=== PATIENT | female | born 1995 | race Caucasian/White ===

== ENCOUNTER → 2023-07-08 10:37 | Outpatient (BNVA) | payer MEDICAID, SELFPAY | PROVIDERS: Visit Provider Nurse Practitioner Women's Health | DX: Z34.93 Encounter for supervision of normal pregnancy, unspecified, third trimester (principal) | CPT/HCPCS: 76805; 80053; 80307; 81000; 82950; 84443; 85025; 86592; 86762; 86803; 86850; 86900; 87086; 87340; 87491; 87591; 87806 ==

== ENCOUNTER → 2023-07-13 08:50 | Outpatient (BNVA) | payer MEDICAID, SELFPAY | PROVIDERS: Visit Provider Obstetrics & Gynecology | DX: O09.93 Supervision of high risk pregnancy, unspecified, third trimester (principal); Z3A.00 Weeks of gestation of pregnancy not specified | CPT/HCPCS: 82951; 82952 ==

== ENCOUNTER → 2023-07-19 10:36 | Outpatient (BNVA) | payer SELFPAY | PROVIDERS: Visit Provider Obstetrics & Gynecology | DX: O09.93 Supervision of high risk pregnancy, unspecified, third trimester (principal); Z3A.32 32 weeks gestation of pregnancy | CPT/HCPCS: 81000 ==

== ENCOUNTER → 2023-07-30 16:19 | Outpatient (BNVA) | payer MEDICAID, SELFPAY | PROVIDERS: Visit Provider Obstetrics & Gynecology | DX: O09.93 Supervision of high risk pregnancy, unspecified, third trimester (principal); O09.30 Supervision of pregnancy with insufficient antenatal care, unspecified trimester; Z98.891 History of uterine scar from previous surgery; Z3A.36 36 weeks gestation of pregnancy | CPT/HCPCS: 81000; 87081 ==

== ENCOUNTER → 2023-08-02 08:13 | Outpatient (BNVA) | payer SELFPAY | PROVIDERS: Visit Provider Obstetrics & Gynecology | DX: O09.93 Supervision of high risk pregnancy, unspecified, third trimester (principal); Z3A.37 37 weeks gestation of pregnancy | CPT/HCPCS: 81000 ==

== ENCOUNTER → 2023-08-09 10:46 | Outpatient (BNVA) | payer MEDICAID, SELFPAY | PROVIDERS: Visit Provider Obstetrics & Gynecology | DX: O09.93 Supervision of high risk pregnancy, unspecified, third trimester (principal); O09.30 Supervision of pregnancy with insufficient antenatal care, unspecified trimester; Z98.891 History of uterine scar from previous surgery; Z3A.38 38 weeks gestation of pregnancy | CPT/HCPCS: 81000 ==

== ENCOUNTER 2023-08-17 05:48 | Inpatient (IN) | payer MEDICAID, SELFPAY ==
[2023-08-17] VITALS (32 sets, daily range): BP systolic 91–113; BP diastolic 51–82; PULSE 61–100; RESP 15–16; TEMP 36.3–36.7; O2SAT 96–98; BMI 38.1
[2023-08-17] MEDS: lactated ringers 1,000 ML 999 ML IV (06:13)
[2023-08-17 06:23] LABS: Basophils # 0.1 10^3/uL (0.0-0.1); Basophils % 0.3 %; Eosinophils # 0.2 10^3/uL (0.0-0.8); Eosinophils % 1.1 %; Hematocrit 35.6 % (36-47); Lymphocytes # 3.4 10^3/uL (0.8-4.8); Lymphocytes % 21.5 %; Mean Corpuscular HGB Conc 32.3 g/dL (30-55); Mean Corpuscular Hemoglobin 27.7 pg (27-33); Mean Corpuscular Volume 85.8 fl (85-98); Mean Platelet Volume 11.2 fL (7.4-10.4); Monocytes # 1.4 10^3/uL (0.2-0.9); Monocytes % 9.1 %; Neutrophils # 10.64 10^3/uL (1.8-7.7); Neutrophils % 67.4 %; Nucleated Red Blood Cells % 0 %; Platelet Count 310 10^3/cmm (157-399); Red Blood Count 4.15 10^6/uL (3.85-5.65)
[2023-08-17] MEDS: citric acid-sodium citrate 30 mL UDC PO (06:55)
[2023-08-17] MEDS: famotidine 20 mg/2 mL INJ IVP (06:56)
[2023-08-17] MEDS: ceFAZolin 2,000 MG in sodium chloride 0.9% (plus) 50 ML 100 MG IV (06:56)
--- NOTE | 2023-08-17 06:56 | ANES.PREANE2 ---
Pre-Anesthetic Assessment Height/Weight: Height 1.55 m Weight 91.626 kg Pulse Resp BP O2 Del Method 100 16 110/66 Room Air 08/17/23 05:58 08/17/23 05:54 08/17/23 05:58 08/17/23 05:57 Operation Date: 08/17/23 07:00 Proposed Procedures p Repeat section 55975,O34.219(Not Applicable) - Dante Hahn MD Familial anesthetic complications: None Was Beta Anatoly taken within 24 hours: N/A Was Clonidine taken within 24 hours: N/A Social Tobacco and No alcohol <0.5 pack(s) per day Exam alert, oriented x 3, clear to auscultation bilaterally and regular rate & rhythm Airway Submandibular: within normal limits Cervical ROM: within normal limits Mallampati: Class III Dentition: full History/ROS No significant history except as noted and No significant complaints Pulmonary None reported CV/HEM None reported None reported Hepatic None reported GI Gastroesophageal Reflux Disease Metabolic Morbid Obesity [facility] [place] None reported Neuropsych None reported Anesthetic Plan ASA status: 3 Anesthesia: Anesthesia Evaluation, General and Regional (specify below) (SAB) Risk of > 500 ml blood loss (7ml/kg in children): Yes, adequate IV access and fluids planned Medications/Allergies Home Medications Medication Instructions Recorded Confirmed Last Taken Type PNV 153-FA 400 mcg-om3 35 mg-dha 1 tab PO DAILY 07/30/23 08/17/23 2 Days Ago History 25 mg-epa 5 mg-fish oil chew ~08/15/23 tablet ( Gummies) Allergies Allergy/AdvReac Type Severity Reaction Status Date / Time red dye Allergy Unknown ALGY-Hives Verified 08/17/23 06:22 [facility] Anesthesia Family History Denies family history of Colon cancer Ovarian cancer Diabetes Heart disease Breast cancer Hypertension Uterine cancer Thyroid disease Stroke Female Reproductive History : 3 Data Anesthesia 08/17/23 06:05 Short CBC 08/17/23 Range/Units 06:05 WBC 15.80 H (3.29-11.43) 10^3/uL Hgb 11.50 (11.27-16.99) g/dL Hct 35.6 L (36-47) % MCV 85.8 (85-98) fl Plt Count 310 (157-399) 10^3/cmm Neut % (Auto) 67.4 % Neut # (Auto) 10.64 H (1.8-7.7) 10^3/uL Cardiac Studies: No Data to Display
--- NOTE | 2023-08-17 08:13 | PC.NURSE ---
Patient in OR2
--- NOTE | 2023-08-17 08:24 | PM.OP ---
Operative Report Date of procedure: August 17, 2023 Pre-op diagnosis: Term . Previous delivery Post-op diagnosis: Same as above Repeat delivery Procedure done: Repeat delivery Surgeon: Dante Hahn MD Estimated blood loss (mL): 500 IV fluids (mL): 1,200 Urine output (mL): 200 Procedure: After assuring informed consent, the patient was taken to the operating room and anesthesia was initiated. She was placed in the dorsal supine position with a left lateral tilt. The abdomen was prepped and draped in the usual sterile manner. A time-out procedure was performed. Preop antibiotics was administered. A Pfannenstiel skin incision was made with the scalpel and carried through to the underlying layer of fascia with the Bovie. The fascia was nicked in the midline and the incision extended laterally with the Sheridan scissors. The superior aspect of the fascial incision was then grasped with Alyssa clamps and elevated and the underlying rectus muscle dissected off bluntly and sharp with sheridan scissors dense adhesions. Attention was then turned to the inferior aspect of the incision which, in similar fashion, was grasped and tented up with Alyssa clamps and the rectus muscle dissected bluntly. The rectus muscles were then in the midline and the peritoneum identified, tented up and entered sharply with Metzenbaum scissors. The peritoneal incision was then extended superiorly and inferiorly with good visualization of the bladder. The Anibal O retractor was then inserted and the vesicouterine peritoneum identified, grasped with pickups and entered sharply with Metzenbaum scissors. This incision was then extended laterally and the bladder flap created digitally. The uterus incised in a low transverse fashion with the scalpel. The uterine incision was then extended with the bandage scissors. The was then delivered in the cephalic presentation atraumatically. The nose and the mouth were suctioned with bulb and the cord clamped and cut. The cord was normal and had three vessels. Amniotic fluid was clear. The placenta was then removed manually and the uterus exteriorized and cleared of all clots and debris. The uterine incision was repaired with 0 Vicryl in a running-locked fashion. A second layer of the same suture was used to obtain excellent hemostasis. The gutters were cleared of all clots. The uterus was then returned to the abdomen. The rectus muscles were approximated with 3-0 chromic gut. The ON-Q pain management system placed. The fascia was reapproximated with 0 Vicryl in an interrupted running fashion. The skin was closed with Insorb?s subcuticular absorbable chuck. The patient tolerated the procedure well. The sponge, lap and needle counts were correct times three.
[2023-08-17] MEDS: lactated ringers 1,000 ML 125 ML IV (08:32)
--- NOTE | 2023-08-17 09:05 | ANE.PACU2 ---
Inpatient post-anesthesia follow up: Airway intact: Yes Vital signs: Temperature 97.9 F Pulse Rate 65 Respiratory Rate 16 Blood Pressure 105/64 Pulse Oximetry 97 Oxygen Delivery Me thod Room Air Oxygen Flow Rate Fraction of Inspir ed Oxygen Hydration adequate: Yes Nausea and vomiting: No Pain level: 1 Mental status: Baseline
[2023-08-17] MEDS: dextrose 5%-lactated ringers 1,000 ML 125 ML IV (12:01)
[2023-08-17] MEDS: ketorolac 30 mg/mL INJ IVP ×2 (14:17→20:10)
[2023-08-17 20:37] LABS: Hematocrit 27.7 % (36-47); Mean Corpuscular HGB Conc 33.2 g/dL (30-55); Mean Corpuscular Hemoglobin 28.5 pg (27-33); Mean Corpuscular Volume 85.8 fl (85-98); Mean Platelet Volume 11.3 fL (7.4-10.4); Platelet Count 290 10^3/cmm (157-399); Red Blood Count 3.23 10^6/uL (3.85-5.65); Red Cell Distribution Width 13.8 % (12.1-15.1); White Blood Count 16.06 10^3/uL (3.29-11.43)
[2023-08-17] MEDS: alum-mag-hydroxide-sime 30 mL UDC PO (21:05)
[2023-08-18 05:29] VITALS: BP 90/54; PULSE 80; TEMP 36.2
[2023-08-18 05:30] VITALS: BP 90/54; PULSE 80
[2023-08-18] MEDS: ferrous sulfate EC 325 mg Tablet PO (10:06)
[2023-08-18] MEDS: prenatal vitamin Capsule 1 CAP PO (10:06)
[2023-08-18] MEDS: ibuprofen 800 mg tablet PO ×3 (10:07→22:16)
[2023-08-18] MEDS: docusate sodium 100 mg Capsule PO (10:08)
--- NOTE | 2023-08-18 10:17 | P.PN_ITS ---
Subjective 2 Subjective: Mrs. Betancourt 28-year-old female is status post repeat low-transverse delivery postoperative day 1. Refers pain well under control. Vitals/I&O/Wt Last Vital Signs Temp 97.2 F L 08/18/23 05:29 Pulse 80 08/18/23 05:30 Resp 16 08/17/23 08:59 BP 90/54 08/18/23 05:30 Pulse Ox 97 08/17/23 08:59 O2 Del Method Room Air 08/17/23 08:59 08/17/23 08/18/23 08/18/23 22:59 06:59 14:59 Intake Total 2000 / 4000 Output Total 300 / 1200 500 / 1700 Balance -300 / 800 1500 / 2300 Weight last 48 hrs Weight 91.626 kg Weight 91.626 kg Weight 91.626 kg Physical Exam 2 Narrative: GA; alert and oriented x 3 HEENT: normal Breasts: engorged Nipples - skin intact Lungs; clear to auscultation Heart: regular rhythm, no murmurs. Abd: Appropriately tender. BS+. Uterine fundus below umbilicus. No Fundal Tenderness. Minimal tenderness, incision clean and dry, no redness, pain or edema. Perineum: normal lochia. Extremities: no edema, no cyanosis, no tenderness. Urinary Catheter Management: Vaughn: Cath Placed During This Visit: yes, but has since been removed by the nurse Reason for Continuing Indwelling Catheter: Decision to DC Catheter Urinary Catheter Date of Insertion: 08/17/23 Urinary Catheter Time of Insertion: 07:15 Date Urinary Catheter Removed: 08/18/23 Time Urinary Catheter Discontinued: 00:25 Data 08/17/23 20:20 A&P Assessment and plan (1) delivery, delivered, current hospitalization: Mrs. Betancourt 28-year-old female is status post repeat low-transverse delivery postoperative day 1. She is afebrile and hemodynamically stable. Tolerating diet well. Plan Continue postoperative observation. Encourage ambulation Attestations 2 Medical Necessity Statement*: In my professional opinion per admitting diagnosis Coding Level of Care Code Acute Code for Chg Fwd Diagnoses delivery, delivered, current hospitalization O82
[2023-08-18 15:48] VITALS: BP 114/59; PULSE 83
[2023-08-18 22:29] VITALS: PULSE 80; O2SAT 98
[2023-08-18 22:31] VITALS: BP 116/65; PULSE 76
[2023-08-19 03:58] VITALS: BP 119/78; PULSE 75
--- NOTE | 2023-08-19 08:04 | PM.OBGYDC ---
Discharge Providers DENTAL LABORATORY SUPERVISOR Date of Admission: 08/17/23 05:48 Date of Discharge: 08/19/23 Attending Provider at Admission: Dante Hahn MD Attending Provider at Discharge: Dante Hahn MD Primary DENTAL LABORATORY SUPERVISOR: Dante Hahn MD Diagnoses at Discharge Discharge Diagnosis (1) delivery, delivered, current hospitalization: Status: Acute Reason for Visit Reason for Visit: c section Hospital Course Hospital Course Ms. Betancourt is a 28 year old admitted with a term and a history of previous delivery for schedule repeat delivery. The repeat delivery was performed without complication. Postoperative observation has been uneventful. She is afebrile and hemodynamically stable postoperative day 2. Tolerating diet well. Ambulating without difficulty. Pain well under control. She was counseled regarding pelvic rest for 6 weeks (no sex, no tampons, no vaginal douches). Return to the emergency room if any fever, increased bleeding or pain. Information Peripartum Data: Infant Delivery Method: Physical Exam Narrative: GA; alert and oriented x 3 HEENT: normal Breasts: engorged Nipples - skin intact Lungs; clear to auscultation Heart: regular rhythm, no murmurs. Abd: Appropriately tender. BS+. Uterine fundus below umbilicus. No Fundal Tenderness. Minimal tenderness, incision clean and dry, no redness, pain or edema. Perineum: normal lochia. Extremities: no edema, no cyanosis, no tenderness. Urinary Catheter Management: Vaughn: Cath Placed During This Visit: yes, but has since been removed by the nurse Reason for Continuing Indwelling Catheter: Decision to DC Catheter Urinary Catheter Date of Insertion: 08/17/23 Urinary Catheter Time of Insertion: 07:15 Date Urinary Catheter Removed: 08/18/23 Time Urinary Catheter Discontinued: 00:25 History History History 3 Term 1 0 Miscarriages/Ectopic 1 Living Children 1 Discharge Data Studies Completed and Pending Laboratory Results WBC 16.06 10^3/uL (3.29-11.43) H 08/17/23 20:20 RBC 3.23 10^6/uL (3.85-5.65) L 08/17/23 20:20 Hgb 9.20 g/dL (11.27-16.99) L 08/17/23 20:20 Hct 27.7 % (36-47) L 08/17/23 20:20 MCV 85.8 fl (85-98) 08/17/23 20:20 MCH 28.5 pg (27-33) 08/17/23 20:20 MCHC 33.2 g/dL (30-55) 08/17/23 20:20 RDW 13.8 % (12.1-15.1) 08/17/23 20:20 Plt Count 290 10^3/cmm (157-399) 08/17/23 20:20 MPV 11.3 fL (7.4-10.4) H 08/17/23 20:20 Neut % (Auto) 67.4 % 08/17/23 06:05 Lymph % (Auto) 21.5 % 08/17/23 06:05 [place] % (Auto) 9.1 % 08/17/23 06:05 Eos % (Auto) 1.1 % 08/17/23 06:05 Baso % (Auto) 0.3 % 08/17/23 06:05 Neut # (Auto) 10.64 10^3/uL (1.8-7.7) H 08/17/23 06:05 Lymph # (Auto) 3.4 10^3/uL (0.8-4.8) 08/17/23 06:05 [place] # (Auto) 1.4 10^3/uL (0.2-0.9) H 08/17/23 06:05 Eos # (Auto) 0.2 10^3/uL (0.0-0.8) 08/17/23 06:05 Baso # (Auto) 0.1 10^3/uL (0.0-0.1) 08/17/23 06:05 Nucleated RBC % (auto) 0 % 08/17/23 06:05 Nucleated RBCs # 0.0 /100WBC 08/17/23 06:05 Blood Type O Positive 08/17/23 06:05 Rho(D) Type Rh positive 08/17/23 06:05 Antibody Screen Negative 08/17/23 06:05 Vitals Last Vital Signs Temp 97.2 F L 08/18/23 05:29 Pulse 75 08/19/23 03:58 Resp 16 08/17/23 08:59 BP 119/78 08/19/23 03:58 Pulse Ox 98 12/27/23 22:29 O2 Del Method Room Air 08/17/23 08:59 Results Labs OB ([facility]): Blood Type O Positive 08/17/23 Antibody Screen Negative 08/17/23 Hct 27.7 % (36-47) L 08/17/23 Hgb 9.20 g/dL (11.27-16.99) L 08/17/23 Rho(D) Type Rh positive 08/17/23 Plt Count 290 10^3/cmm (157-399) 08/17/23 Hep Bs Antigen Non-reactive (Nonreactive) 07/08/23 Hepatitis C Antibody Non-reactive (Nonreactive) 07/08/23 Rubella IgG Antibody 120.6 IU/mL (0.0-10.0) H 07/08/23 RPR Nonreactive (Nonreactive) 07/08/23 HIV 1&2 Ab & HIV 1 Ag Non-reactive (Non-Reactiv) 07/08/23 TSH 2.86 uIU/mL (0.27-4.20) 07/08/23 C.trachomatis RNA (TMA) Not detected (NOT DETECTED) 07/08/23 N.gonorrhoeae RNA (TMA) Not detected (NOT DETECTED) 07/08/23 Chlamydia/GC Comment See note 07/08/23 Gest Glucose Tolerance mg/dL 07/13/23 Urine Opiates Screen Negative ng/mL (Negative) 07/08/23 Ur Barbiturates Screen Negative ng/mL (Negative) 07/08/23 Ur Phencyclidine Scrn Negative ng/mL (Negative) 07/08/23 Ur Amphetamines Screen Negative ng/mL (Negative) 07/08/23 U Benzodiazepines Scrn Negative ng/mL (Negative) 07/08/23 Urine Cocaine Screen Negative ng/mL (Negative) 07/08/23 U Marijuana (THC) Screen Negative ng/mL (Negative) 07/08/23 Micro Urine Specimen 07/08/23 Discharge Plan Discharge Patient Disposition: Home Condition: Stable Prescriptions: New hydrocodone-acetaminophen 5-325 mg tablet 1 tab PO Q4H PRN (Reason: pain) Qty: 20 0RF ferrous sulfate [Iron (ferrous sulfate)] 325 mg (65 mg iron) tablet 325 mg PO BID Qty: 30 0RF ibuprofen 800 mg tablet 800 mg PO TID PRN (Reason: pain) Qty: 60 0RF acetaminophen 325 mg capsule 325 mg PO Q4H PRN (Reason: fever or pain) Qty: 60 0RF docusate sodium [Colace] 100 mg capsule 100 mg PO BID Qty: 30 0RF Continued Gummies 400 mcg-35 mg- 25 mg-5 mg tablet,chewable 1 tab PO DAILY Discharge Orders: Discharge Order (Routine); Ordered 08/19/23 Ordered By: Dante Hahn Referrals: Dante Hahn MD [Physician] - 2 weeks Discharge Diet: Usual diet Discharge Activity: Limit activity as instructed Patient Instructions: Choosing Between Vaginal After () or Repeat... (GEN), Caring for Your Baby (GEN), TTN (Transient Tachypnea of [place]) (IP), Your 's Appearance (GEN), (GEN), Opioid Safety Activity Restrictions/Additional Instructions: 1. Please call [facility] on next working day to make your post-operative appointment in 2 weeks. 2. Please stay home until you come back to the clinic on first post-hospatilization check up. 3. Please follow instructions on your medications CAREFULLY. 4. If you have abdominal incision, do not cover it unless dressing is necessary because of drainage. OK to shower, but avoid bath. Leave steri-strips until they fall off. If they are still on one week after surgery, you may remove them. 5. If you had vaginal surgery or vaginal repair, Dr. Hahn may instruct you to take SITZ bath. 6. Yellow, blood tinged odorous vaginal discharge is usually normal after hysterectomy or vaginal surgeries. 7. No SEXUAL INTERCOURSE, tampons, or douches until you are completely released from the post-operative care. 8. Avoid constipation by eating right and maybe using some Metamucil or Milk of Magnesia. 9. All prescription refills are given during the working hours. Please do no wait till it runs out. Call the clinic at [phone] before your medication runs out. The clinic will get in touch with your doctor to prescribe medications if necessary. 10. Please remain within 40 mile radius from our hospital because emergencies do happen now and then during the post-operative period. 11. If you have stairs at home, take one step at a time slowly and minimize the number of trips. It helps to stay in one floor for the next few days. No lifting except what you can lift by one hand until you are released from the post-operative care. 12. Driving is discouraged until you are well healed. It may be 3-4 weeks before you feel strong enough to drive. You should be able to turn and look through the rear window without pain and you should be able to push the brake pedal very hard without pain before you drive. No fast rules, but SAFETY should be your primary concern. DO NOT drive if you are on sedating medications such as narcotics. 13. Call the clinic (during working hours) to make urgent appointment or go to the Emergency room, if any of the following occurs: i. Vaginal bleeding becomes heavy, more than a period. ii. Incision becomes red and sore, or drains pus. iii. Your TEMPERATURE is over 100.4F or you have chill. iv. IV site becomes red and swollen (a little ``knot?? is usually OK) v. Persistent nausea and vomiting vi. Persistent constipation or diarrhea vii. Rash or allergic reaction to medications. Discharge Attestations DENTAL LABORATORY SUPERVISOR Time Spent in Discharge Care*: greater than 30 min Coding Level of Care Code Acute Code for Chg Fwd Diagnoses delivery, delivered, current hospitalization O82
[2023-08-19] MEDS: ferrous sulfate EC 325 mg Tablet PO (09:16)
[2023-08-19] MEDS: prenatal vitamin Capsule 1 CAP PO (09:16)
[2023-08-19] MEDS: docusate sodium 100 mg Capsule PO (09:17)
[2023-08-19] MEDS: ibuprofen 800 mg tablet PO ×2 (09:17→15:22)
[2023-08-19 09:18] VITALS: BP 108/76; PULSE 79; RESP 16; TEMP 36.5
[2023-08-19 15:23] VITALS: BP 114/72; PULSE 92; RESP 15; TEMP 36.6
[2023-08-19 15:32] VITALS: BP 114/72; PULSE 92; RESP 15; TEMP 36.6
== END 2023-08-19 15:37 | disposition home or self-care (01) | DRG 788 ==
PROVIDERS: Admitting Provider Obstetrics & Gynecology; Visit Provider Obstetrics & Gynecology
PROC: (CPT 59514; principal; 2023-08-17 07:00)
DX: O34.211 Maternal care for low transverse scar from previous cesarean delivery (principal); N85.8 Other specified noninflammatory disorders of uterus; Z3A.39 39 weeks gestation of pregnancy; Z37.0 Single live birth
CPT/HCPCS: 36415; 51702; 59025; 59409; 85025; 85027; 86850; 86900; 96376; 98960; 99211; J0690; J1100; J1885; J2274; J2371; J2405; J2704; J3010; J3490; J7120; J7121

== ENCOUNTER 2023-10-03 21:27 | Emergency (ER) | payer MEDICAID, SELFPAY ==
[2023-10-03 21:34] VITALS: BP 127/97; PULSE 73; RESP 16; TEMP 36.7; O2SAT 99; BMI 32.1
[2023-10-03 21:51] VITALS: BP 127/97; PULSE 72; RESP 16; O2SAT 99
[2023-10-03 21:57] LABS: Basophils # 0.1 10^3/uL (0.0-0.1); Basophils % 0.7 %; Eosinophils # 0.2 10^3/uL (0.0-0.8); Eosinophils % 1.7 %; Lymphocytes # 4.2 10^3/uL (0.8-4.8); Lymphocytes % 37.2 %; Mean Corpuscular HGB Conc 31.4 g/dL (30-55); Mean Corpuscular Hemoglobin 26.8 pg (27-33); Mean Corpuscular Volume 85.2 fl (85-98); Mean Platelet Volume 9.5 fL (7.4-10.4); Monocytes # 0.8 10^3/uL (0.2-0.9); Monocytes % 6.8 %; Neutrophils # 5.99 10^3/uL (1.8-7.7); Neutrophils % 53.2 %; Nucleated Red Blood Cells % 0 %; Platelet Count 391 10^3/cmm (157-399); Red Blood Count 4.93 10^6/uL (3.85-5.65); Red Cell Distribution Width 15.9 % (12.1-15.1); White Blood Count 11.24 10^3/uL (3.29-11.43)
[2023-10-03] MEDS: sodium chloride 0.9% 1,000 ML 999 ML IV (22:07)
[2023-10-03] MEDS: lidocaine 2% viscous 15 ML, aluminum-mag hydrox-simethicon 30 ML, sucralfate oral liq 1 GM PO (22:09)
[2023-10-03 22:19] LABS: HCG, Serum Qual Negative (Negative)
[2023-10-03 22:37] LABS: Alanine Aminotransferase 31 U/L (0-33); Albumin Level 3.9 g/dL (3.5-5.2); Alkaline Phosphatase 143 U/L (35-105); Anion Gap 14.4 (5-19); Aspartate Amino Transferase 36 U/L (0-32); Blood Urea Nitrogen 10 mg/dL (6-20); Calcium 8.3 mg/dL (8.5-10.5); Carbon Dioxide 22 mmol/L (22-29); Chloride 107 mmol/L (98-107); Globulin 2.4 g/dL (1.3-4.6); Glomerular Filtration Rate 101.1 mL/min (90-130); Glucose 91 mg/dL (65-115); Lipase 26 U/L (13-60); Osmolality Calculated 289 mOsm/kg (285-295); Potassium 3.4 mmol/L (3.5-5.1); Sodium 140 mmol/L (136-145); Total Bilirubin 0.4 mg/dL (0.15-1.2); Total Protein 6.3 g/dL (6.6-8.7)
[2023-10-03 22:40] LABS: Add Urine Microscopic? NO; Charge for UA Resulting for Rev
[2023-10-03 22:43] LABS: Bilirubin Urine Neg (Negative); Blood Urine Neg (Negative); Glucose Urine UA Norm (Normal); Ketones Urine 1+ (Negative); Nitrate Urine Negative (Negative); Protein Urine Neg (Negative); Specific Gravity, Urine 1.015 (1.005-1.030); Urine Appearance Clear (CLEAR); Urine Color Yellow (Yellow); pH Urine 6.5 (5-7)
[2023-10-03 22:44] LABS: Leukocyte Esterase Urine Negative (Negative); Urobilinogen Urine 1 mg/dL (Negative)
[2023-10-03] MEDS: ondansetron 2 mg/ML SDV 2 mL 4 MG IVP (23:08)
[2023-10-03 23:11] VITALS: RESP 20; O2SAT 98
[2023-10-03] MEDS: morphine 4 mg/mL SDV 1 mL IVP (23:11)
[2023-10-03 23:12] VITALS: BP 133/95; PULSE 73; RESP 20; O2SAT 98
[2023-10-04] MEDS: ciprofloxacin 500 mg Tablet PO (01:05)
[2023-10-04] MEDS: metroNIDAZOLE 500 MG Tablet PO (01:05)
--- NOTE | 2023-10-04 05:34 | ED_ITS ---
HPI - Abdominal Pain 2 General: Chief Complaint: Abdominal Pain Stated Complaint: ABD Pain Time Seen by Provider: 10/03/23 21:33 History of Present Illness: 28-year-old female with epigastric and r ight upper quadrant pain. Pain started today. She has had prior episodes, several actually. She has vomited prior, but not today. No fevers. She does not necessarily associate pain with meals. History of C-sections, otherwise no belly surgeries. Associated Symptoms: Reports diarrhea, nausea and vomiting; Denies fever(s) and hematochezia Review of Systems 2 Const: Denies: fever(s) Eyes: Denies: change in vision Card: Denies: chest pain or palpitations Resp: Denies: dyspnea, productive cough, non-productive cough or wheezing GI: Reports: abdominal pain, nausea, vomiting and diarrhea; Denies: hematochezia : Denies: difficulty voiding Skin/Breast: Denies: rash Neuro: Denies: headache(s), weakness in extremities, dizziness or confusion PFSH ED 2 PFSH: Family History Denies family history of Colon cancer Ovarian cancer Diabetes Heart disease Breast cancer Hypertension Uterine cancer Thyroid disease Stroke Physical Exam 2 Const: COMMON NORMALS: no acute distress GENERAL APPEARANCE: cooperative; not ill appearing and not frail appearing HENMT: COMMON NORMALS: normocephalic, atraumatic and Normal external nose present HEAD & SCALP: normocephalic and atraumatic FACE & SINUS: normal facial exam and face symmetric NOSE: Normal external nose present Eye: COMMON NORMALS: Equal, round and reactive pupils present and EOMs intact bilaterally PUPIL: Yes Equal, round and reactive pupils present Neck/C-Spine: GENERAL: Yes trachea midline Chest: CHEST: Yes Symmetrical chest wall rise Resp: COMMON NORMALS: normal respiratory effort, No retractions, No use of accessory muscles and clear to auscultation bilaterally AUSCULTATION: clear to auscultation bilaterally Cardio: COMMON NORMALS: regular rate and regular rhythm RATE: regular rate RHYTHM: regular rhythm GI: COMMON NORMALS: Normal to inspection, nondistended, normoactive bowel sounds present and Soft to palpation PALPATION: Yes Soft to palpation, Yes Tenderness to palpation present (GI) and Yes Guarding due to palpation present (GI) Extremity: COMMON NORMALS: no pedal edema Neuro: ALFREDO COMA SCALE: document GCS findings Alfredo coma scale eye opening: Spontaneous Hudson coma scale verbal response: Orientated Alfredo coma scale motor response: Obey commands Hudson coma scale total score: 15 S ENSORY EXAM: Yes extremities (intact) Psych: COMMON NORMALS: speech normal SPEECH: Yes normal speech Skin: COMMON NORMALS: no rashes or lesions noted GENERAL SKIN EXAM: no rashes or lesions noted Course 2 Vital Signs: Vital signs: Vital Signs Temperature 98.0 F 10/03/23 21:34 Pulse Rate 73 10/03/23 23:12 Respiratory Rate 20 H 10/03/23 23:12 Blood Pressure 133/95 10/03/23 23:12 Pulse Oximetry 98 10/03/23 23:12 Oxygen Delivery Me thod Room Air 10/03/23 23:12 MDM - Abdominal Pain Medical Decision Making Pain improved after medication here. She has received a GI cocktail without much improvement. Potassium is 3.4. Otherwise laboratory is not remarkable. CRP is only 3. Gallbladder ultrasound reveals cholelithiasis without significant pericholecystic fluid. She has minimal wall thickening. She will be placed on Cipro and Flagyl, symptomatic treatment, and asked to follow-up with surgery this week. To return for worsening including fever, yellowing of the eyes, vomiting, etc. Lab Data 10/03/23 21:50 10/03/23 22:13 Labs/Radiology: Radiology Impressions Gallbladder Ultrasound 10/04/23 06:00 IMPRESSION: Cholelithiasis. No evident pericholecystic fluid. Additional details as above. Laboratory Results WBC 11.24 10^3/uL (3.29-11.43) 10/03/23 21:50 RBC 4.93 10^6/uL (3.85-5.65) 10/03/23 21:50 Hgb 13.20 g/dL (11.27-16.99) 10/03/23 21:50 Hct 42.0 % (36-47) 10/03/23 21:50 MCV 85.2 fl (85-98) 10/03/23 21:50 MCH 26.8 pg (27-33) L 10/03/23 21:50 MCHC 31.4 g/dL (30-55) 10/03/23 21:50 RDW 15.9 % (12.1-15.1) H 10/03/23 21:50 Plt Count 391 10^3/cmm (157-399) 10/03/23 21:50 MPV 9.5 fL (7.4-10.4) 10/03/23 21:50 Neut % (Auto) 53.2 % 10/03/23 21:50 Lymph % (Auto) 37.2 % 10/03/23 21:50 [place] % (Auto) 6.8 % 10/03/23 21:50 Eos % (Auto) 1.7 % 10/03/23 21:50 Baso % (Auto) 0.7 % 10/03/23 21:50 Neut # (Auto) 5.99 10^3/uL (1.8-7.7) 10/03/23 21:50 Lymph # (Auto) 4.2 10^3/uL (0.8-4.8) 10/03/23 21:50 [place] # (Auto) 0.8 10^3/uL (0.2-0.9) 10/03/23 21:50 Eos # (Auto) 0.2 10^3/uL (0.0-0.8) 10/03/23 21:50 Baso # (Auto) 0.1 10^3/uL (0.0-0.1) 10/03/23 21:50 Nucleated RBC % (auto) 0 % 10/03/23 21:50 Nucleated RBCs # 0.0 /100WBC 10/03/23 21:50 Sodium 140 mmol/L (136-145) 10/03/23 22:13 Potassium 3.4 mmol/L (3.5-5.1) L 10/03/23 22:13 Chloride 107 mmol/L (98-107) 10/03/23 22:13 Carbon Dioxide 22 mmol/L (22-29) 10/03/23 22:13 Anion Gap 14.4 (5-19) 10/03/23 22:13 BUN 10 mg/dL (6-20) 10/03/23 22:13 Creatinine 0.7 mg/dL (0.5-0.9) 10/03/23 22:13 GFR Calculation 101.1 mL/min (90-130) 10/03/23 22:13 Glucose 91 mg/dL (65-115) 10/03/23 22:13 Calculated Osmolality 289 mOsm/kg (285-295) 10/03/23 22:13 Calcium 8.3 mg/dL (8.5-10.5) L 10/03/23 22:13 Total Bilirubin 0.4 mg/dL (0.15-1.2) 10/03/23 22:13 AST 36 U/L (0-32) H 10/03/23 22:13 ALT 31 U/L (0-33) 10/03/23 22:13 Alkaline Phosphatase 143 U/L (35-105) H 10/03/23 22:13 C-Reactive Protein 3.0 mg/L (0.0-4.9) 10/03/23 22:13 Total Protein 6.3 g/dL (6.6-8.7) L 10/03/23 22:13 Albumin 3.9 g/dL (3.5-5.2) 10/03/23 22:13 Globulin 2.4 g/dL (1.3-4.6) 10/03/23 22:13 Lipase 26 U/L (13-60) 10/03/23 22:13 HCG, Qual Negative (Negative) 10/03/23 21:50 Urine Color Yellow (Yellow) 10/03/23 22:30 Urine Appearance Clear (CLEAR) 10/03/23 22:30 Urine pH 6.5 (5-7) 10/03/23 22:30 Ur Specific Felicity 1.015 (1.005-1.030) 10/03/23 22:30 Urine Protein Neg (Negative) 10/03/23 22:30 Urine Glucose (UA) Norm (Normal) 10/03/23 22:30 Urine Ketones 1+ (Negative) H 10/03/23 22:30 Urine Blood Neg (Negative) 10/03/23 22:30 Urine Nitrate Negative (Negative) 10/03/23 22:30 Urine Bilirubin Neg (Negative) 10/03/23 22:30 Urine Urobilinogen 1 mg/dL (Negative) H 10/03/23 22:30 Ur Leukocyte Esterase Negative (Negative) 10/03/23 22:30 All radiology interpretation(s) finalized by discharge Discharge Plan Discharge Patient Disposition: Home Clinical Impression: Cholecystitis Condition: Stable Prescriptions: New ciprofloxacin HCl 500 mg tablet 500 mg PO BID Qty: 14 0RF metronidazole 500 mg tablet 500 mg PO Q8H 7 Days Qty: 21 0RF hydrocodone-acetaminophen 5-325 mg tablet 1 tab PO Q8H PRN (Reason: pain) Qty: 7 0RF ondansetron 4 mg tablet,disintegrating 4 mg PO Q6H PRN (Reason: nausea and vomiting) Qty: 14 0RF Discharge Orders: Discharge ED (Routine); Ordered 10/04/23 Ordered By: Jeffery Leonardo Referrals: Anibal Hunter MD [Physician] - 4-7 days Patient Instructions: Cholecystitis (ED), Opioid Safety, Pain Management Activity Restrictions/Additional Instructions: Follow a liquid diet for the next 24 hours, then you may slowly advance if pain- free. Return for fever greater than 100, vomiting liquids or medications, worsening pain despite treatment, other concerning symptoms. Antibiotics as directed. Call the surgery clinic in the morning for an appointment. Let them know you were seen here with cholecystitis and were placed on antibiotics. Coding Level of Care Code ED Grout Machine Operator for Marysol Castano
--- NOTE | 2023-10-04 06:00 | USR_ITS ---
PROCEDURE INFORMATION: Exam: US Abdomen, Limited; Right Upper Quadrant Exam date and time: 10/04/2023 12:23 AM Age: 28 years old Clinical indication: Abdominal pain; Epigastric; Additional info: Ruq epigastric pain TECHNIQUE: Imaging protocol: Real time ultrasound of the abdomen with image documentation. Limited exam focused on the right upper quadrant. COMPARISON: US OB >= 14 weeks fetus [id number] 07/08/2023 10:55 AM FINDINGS: Liver: No masses. Hepatopetal flow in main portal vein. Gallbladder: Small gallstones are suggested within the gallbladder. Gallbladder is not abnormally distended. No pericholecystic fluid. Gallbladder wall thickness measures up to 4 mm. Sonographic Shaw sign is present. Biliary ducts: Normal. No stones. No dilation. Pancreas: Visualized pancreas is unremarkable. Right kidney: Normal. No mass. No hydronephrosis. US/US gall bladder [id number] IMPRESSION: Cholelithiasis. No evident pericholecystic fluid. Additional details as above.
== END 2023-10-04 01:10 | disposition home or self-care (01) ==
PROVIDERS: Emergency Provider Emergency Medicine
DX: K81.9 Cholecystitis, unspecified (principal)
CPT/HCPCS: 36415; 76705; 80053; 81003; 83690; 84703; 85025; 86140; 96361; 96374; 96375; 99284; J2270; J2405; J7030

== ENCOUNTER 2023-10-10 02:14 | Observation (INO) | payer MEDICAID, SELFPAY ==
[2023-10-10] VITALS (19 sets, daily range): BP systolic 90–122; BP diastolic 53–85; PULSE 40–90; RESP 14–18; TEMP 36.4–37.3; O2SAT 94–100; BMI 34.9
[2023-10-10] MEDS: sodium chloride 0.9% 1,000 ML 999 ML IV ×2 (02:32→05:06)
[2023-10-10] MEDS: ondansetron 2 mg/ML SDV 2 mL 4 MG IVP (02:33)
[2023-10-10] MEDS: morphine 4 mg/mL SDV 1 mL IVP (02:34)
--- NOTE | 2023-10-10 02:38 | ED_ITS ---
Documented by User: Frank Wood MD 10/10/23 05:35 HPI - Abdominal Pain 2 General: Chief Complaint: Abdominal Pain Stated Complaint: abdomen pain Time Seen by Provider: 10/10/23 02:16 Source: patient Mode of arrival: ambulatory Limitations: no limitations History of Present Illness: 28-year-old female who has been having u pper abdominal pain for the last week she was seen last week diagnosed with gallstones she is seeing a surgeon is set up for surgery on she has had pain for 6 hours tonight rates her pain a 8 out of 10 denies any vomiting denies any diarrhea denies any fever denies any worse improved factors. Associated Symptoms: Denies chills, diarrhea, fever(s), nausea and vomiting Review of Systems 2 Const: Denies: fever(s), chills, body aches or change in appetite ENMT: Denies: throat pain or dental pain Card: Denies: chest pain Resp: Denies: dyspnea GI: Reports: abdominal pain; Denies: nausea, vomiting or diarrhea Musc: Denies: neck pain or back pain Skin/Breast: Denies: rash Neuro: Denies: headache(s) PFSH ED 2 PFSH: Family History Denies family history of Colon cancer Ovarian cancer Diabetes Heart disease Breast cancer Hypertension Uterine cancer Thyroid disease Stroke Social History Smoking and tobacco/nicotine status: current every day tobacco/nicotine user Alcohol intake: never Physical Exam 2 Const: COMMON NORMALS: no acute distress, patient oriented x3 and healthy appearing HENMT: COMMON NORMALS: normocephalic and atraumatic HEAD & SCALP: n ormocephalic and atraumatic Neck/C-Spine: COMMON NORMALS: full ROM and supple Chest: COMMONS NORMALS: normal inspection of the chest Resp: COMMON NORMALS: normal respiratory effort Cardio: COMMON NORMALS: regular rate, regular rhythm and No murmurs present (Cardio) RATE: regular rate RHYTHM: regular rhythm GI: COMMON NORMALS: Normal to inspection, nondistended, normoactive bowel sounds present, Soft to palpation, non-tender and no masses PALPATION: Yes Soft to palpation Extremity: COMMON NORMALS: normal to inspection and full ROM Neuro: COMMON NORMALS: patient oriented x3, moves all extremities and no focal motor deficits Psych: COMMON NORMALS: mental status grossly normal, Normal thought process present and cooperative THOUGHT PROCESS: Normal thought process present Skin: COMMON NORMALS: no rashes or lesions noted and no wounds GENERAL SKIN EXAM: no rashes or lesions noted Course 2 Vital Signs: Vital signs: Vital Signs Temperature 99.1 F 10/10/23 02:20 Pulse Rate 58 L 10/10/23 08:55 Respiratory Rate 17 10/10/23 08:55 Blood Pressure 103/64 10/10/23 08:55 Pulse Oximetry 99 10/10/23 08:55 Oxygen Delivery Me thod Room Air 10/10/23 08:55 MDM - Abdominal Pain Medical Decision Making Patient presents here with abdominal pain ultrasound does show cholelithiasis she has a thickened gallbladder wall along with common bile duct measuring 0.5 cm she has an elevated bilirubin and liver enzymes I did speak to surgeon Dr. Ballesteros will order an MRCP to rule out choledocholithiasis if no choledocholithiasis we will likely admit to him if she does have choledocholithiasis she will not be transferred for an ERCP Lab Data 10/10/23 02:28 10/10/23 03:20 Labs/Radiology: Radiology Impressions Gallbladder Ultrasound 10/10/23 04:02 IMPRESSION: Cholelithiasis with wall thickening and reported positive sonographic Shaw sign. Findings may be seen with acute cholecystitis in the appropriate clinical context. Cholangiopancreatography MRI 10/10/23 05:31 IMPRESSION: 1. Cholelithiasis with cystic duct stones and surrounding inflammatory changes suggestive of acute cholecystitis. 2. No CBD stones or biliary dilatation. Laboratory Results WBC 12.29 10^3/uL (3.29-11.43) H 10/10/23 02:28 RBC 5.23 10^6/uL (3.85-5.65) 10/10/23 02:28 Hgb 14.10 g/dL (11.27-16.99) 10/10/23 02:28 Hct 44.2 % (36-47) 10/10/23 02:28 MCV 84.5 fl (85-98) L 10/10/23 02:28 MCH 27.0 pg (27-33) 10/10/23 02:28 MCHC 31.9 g/dL (30-55) 10/10/23 02: RDW 16.3 % (12.1-15.1) H 10/10/23 02:28 Plt Count 404 10^3/cmm (157-399) H 10/10/23 02:28 MPV 10.1 fL (7.4-10.4) 10/10/23 02: Neut % (Auto) 71.0 % 10/10/23 02: Lymph % (Auto) 20.6 % 10/10/23 02:28 [place] % (Auto) 6.3 % 10/10/23 02: Eos % (Auto) 1.4 % 10/10/23 02: Baso % (Auto) 0.5 % 10/10/23 02: Neut # (Auto) 8.72 10^3/uL (1.8-7.7) H 10/10/23 02: Lymph # (Auto) 2.5 10^3/uL (0.8-4.8) 10/10/23 02: [place] # (Auto) 0.8 10^3/uL (0.2-0.9) 10/10/23 02: Eos # (Auto) 0.2 10^3/uL (0.0-0.8) 10/10/23 02: Baso # (Auto) 0.1 10^3/uL (0.0-0.1) 10/10/23 02: Nucleated RBC % (auto) 0 % 10/10/23 02: Nucleated RBCs # 0.0 /100WBC 10/10/23 02:28 Sodium 141 mmol/L (136-145) 10/10/23 03:20 Potassium 3.7 mmol/L (3.5-5.1) 10/10/23 03:20 Chloride 104 mmol/L (98-107) 10/10/23 03:20 Carbon Dioxide 24 mmol/L (22-29) 10/10/23 03:20 Anion Gap 16.7 (5-19) 10/10/23 03:20 BUN 12 mg/dL (6-20) 10/10/23 03:20 Creatinine 0.7 mg/dL (0.5-0.9) 10/10/23 03:20 GFR Calculation 101.1 mL/min (90-130) 10/10/23 03:20 Glucose 94 mg/dL (65-115) 10/10/23 03:20 Calculated Osmolality 292 mOsm/kg (285-295) 10/10/23 03:20 Calcium 8.9 mg/dL (8.5-10.5) 10/10/23 03:20 Total Bilirubin 1.6 mg/dL (0.15-1.2) H 10/10/23 03:20 AST 354 U/L (0-32) H 10/10/23 03:20 ALT 225 U/L (0-33) H 10/10/23 03:20 Alkaline Phosphatase 472 U/L (35-105) H 10/10/23 03:20 Total Protein 7.2 g/dL (6.6-8.7) 10/10/23 03:20 Albumin 4.2 g/dL (3.5-5.2) 10/10/23 03:20 Globulin 3.0 g/dL (1.3-4.6) 10/10/23 03:20 Lipase 25 U/L (13-60) 10/10/23 03:20 HCG, Qual Negative (Negative) 10/10/23 02:28 Urine Color [place] (Yellow) A 10/10/23 02:37 Urine Appearance Cloudy (CLEAR) A 10/10/23 02:37 Urine pH 9 (5-7) H 10/10/23 02:37 Ur Specific [place] 1.010 (1.005-1.030) 10/10/23 02:37 Urine Protein 2+ (Negative) H 10/10/23 02:37 Urine Glucose (UA) Norm (Normal) 10/10/23 02:37 Urine Ketones 1+ (Negative) H 10/10/23 02:37 Urine Blood 3+ (Negative) H 10/10/23 02:37 Urine Nitrate Positive (Negative) H 10/10/23 02:37 Urine Bilirubin Neg (Negative) 10/10/23 02:37 Prot Sulfosalicylic Acd Negative (Negative) 10/10/23 02:37 Urine Urobilinogen 1 mg/dL (Negative) H 10/10/23 02:37 Ur Leukocyte Esterase 1+ (Negative) H 10/10/23 02:37 Urine RBC 5-10 /hpf (0-2) H 10/10/23 02:37 Urine WBC 5-10 /hpf (0-5) H 10/10/23 02:37 Ur Squamous Epith Cells 0-4 /hpf (0-5) H 10/10/23 02:37 Amorphous Sediment Not Reportable 10/10/23 02:37 Urine Bacteria 1+ /hpf (NONE) H 10/10/23 02:37 Urine Mucus 2+ /hpf 10/10/23 02:37 Discharge Plan Discharge Patient Disposition: Admitted As Inpatient Clinical Impression: Acute calculous cholecystitis Condition: Stable Coding Level of Care Code ED Apprentice/Lineman for Chg Fwd Documented by User: Berkley Ferris MD 10/10/23 09:52 HPI - Abdominal Pain 2 General: Chief Complaint: Abdominal Pain Stated Complaint: abdomen pain Time Seen by Provider: 10/10/23 02:16 PFS ED 2 PFSH: Family History Denies family history of Colon cancer Ovarian cancer Diabetes Heart disease Breast cancer Hypertension Uterine cancer Thyroid disease Stroke Social History Smoking and tobacco/nicotine status: current every day tobacco/nicotine user Alcohol intake: never Course 2 Vital Signs: Vital signs: Vital Signs Temperature 99.1 F 10/10/23 02:20 Pulse Rate 58 L 10/10/23 08:55 Respiratory Rate 17 10/10/23 08:55 Blood Pressure 103/64 10/10/23 08:55 Pulse Oximetry 99 10/10/23 08:55 Oxygen Delivery Me thod Room Air 10/10/23 08:55 MDM - Abdominal Pain Medical Decision Making Patient presents here with abdominal pain ultrasound does show cholelithiasis she has a thickened gallbladder wall along with common bile duct measuring 0.5 cm she has an elevated bilirubin and liver enzymes I did speak to surgeon Dr. Ballesteros will order an MRCP to rule out choledocholithiasis if no choledocholithiasis we will likely admit to him if she does have choledocholithiasis she will not be transferred for an ERCP Patient was transferred to [facility] awaiting an MRCP. Patient had new elevation in her liver enzymes so there was concern for common bile duct stones. She had leukocytosis and documented cholecystitis. MRCP was done and shows: Lithiasis and cholecystitis but no common bile duct stones with a normal appearing bile duct. Consultation: I spoke with Dr. Ballesteros on-call for general surgery. He agrees to admission and recommends scheduled Zosyn, clear liquid diet, pain medications and nausea medications. Lab Data 10/10/23 02:28 10/10/23 03:20 Labs/Radiology: Radiology Impressions Gallbladder Ultrasound 10/10/23 04:02 IMPRESSION: Cholelithiasis with wall thickening and reported positive sonographic Shaw sign. Findings may be seen with acute cholecystitis in the appropriate clinical context. Cholangiopancreatography MRI 10/10/23 05:31 IMPRESSION: 1. Cholelithiasis with cystic duct stones and surrounding inflammatory changes suggestive of acute cholecystitis. 2. No CBD stones or biliary dilatation. Laboratory Results WBC 12.29 10^3/uL (3.29-11.43) H 10/10/23 02:28 RBC 5.23 10^6/uL (3.85-5.65) 10/10/23 02:28 Hgb 14.10 g/dL (11.27-16.99) 10/10/23 02:28 Hct 44.2 % (36-47) 10/10/23 02:28 MCV 84.5 fl (85-98) L 10/10/23 02:28 MCH 27.0 pg (27-33) 10/10/23 02:28 MCHC 31.9 g/dL (30-55) 10/10/23 02:28 RDW 16.3 % (12.1-15.1) H 10/10/23 02:28 Plt Count 404 10^3/cmm (157-399) H 10/10/23 02:28 MPV 10.1 fL (7.4-10.4) 10/10/23 02:28 Neut % (Auto) 71.0 % 10/10/23 02:28 Lymph % (Auto) 20.6 % 10/10/23 02:28 [place] % (Auto) 6.3 % 10/10/23 02: Eos % (Auto) 1.4 % 10/10/23 02: Baso % (Auto) 0.5 % 10/10/23 02: Neut # (Auto) 8.72 10^3/uL (1.8-7.7) H 10/10/23 02: Lymph # (Auto) 2.5 10^3/uL (0.8-4.8) 10/10/23 02: [place] # (Auto) 0.8 10^3/uL (0.2-0.9) 10/10/23 02: Eos # (Auto) 0.2 10^3/uL (0.0-0.8) 10/10/23 02: Baso # (Auto) 0.1 10^3/uL (0.0-0.1) 10/10/23 02: Nucleated RBC % (auto) 0 % 10/10/23 02: Nucleated RBCs # 0.0 /100WBC 10/10/23 02:28 Sodium 141 mmol/L (136-145) 10/10/23 03:20 Potassium 3.7 mmol/L (3.5-5.1) 10/10/23 03:20 Chloride 104 mmol/L (98-107) 10/10/23 03:20 Carbon Dioxide 24 mmol/L (22-29) 10/10/23 03:20 Anion Gap 16.7 (5-19) 10/10/23 03:20 BUN 12 mg/dL (6-20) 10/10/23 03:20 Creatinine 0.7 mg/dL (0.5-0.9) 10/10/23 03:20 GFR Calculation 101.1 mL/min (90-130) 10/10/23 03:20 Glucose 94 mg/dL (65-115) 10/10/23 03:20 Calculated Osmolality 292 mOsm/kg (285-295) 10/10/23 03:20 Calcium 8.9 mg/dL (8.5-10.5) 10/10/23 03:20 Total Bilirubin 1.6 mg/dL (0.15-1.2) H 10/10/23 03:20 AST 354 U/L (0-32) H 10/10/23 03:20 ALT 225 U/L (0-33) H 10/10/23 03:20 Alkaline Phosphatase 472 U/L (35-105) H 10/10/23 03:20 Total Protein 7.2 g/dL (6.6-8.7) 10/10/23 03:20 Albumin 4.2 g/dL (3.5-5.2) 10/10/23 03:20 Globulin 3.0 g/dL (1.3-4.6) 10/10/23 03:20 Lipase 25 U/L (13-60) 10/10/23 03:20 HCG, Qual Negative (Negative) 10/10/23 02:28 Urine Color [place] (Yellow) A 10/10/23 02:37 Urine Appearance Cloudy (CLEAR) A 10/10/23 02:37 Urine pH 9 (5-7) H 10/10/23 02:37 Ur Specific [place] 1.010 (1.005-1.030) 10/10/23 02:37 Urine Protein 2+ (Negative) H 10/10/23 02:37 Urine Glucose (UA) Norm (Normal) 10/10/23 02:37 Urine Ketones 1+ (Negative) H 10/10/23 02:37 Urine Blood 3+ (Negative) H 10/10/23 02:37 Urine Nitrate Positive (Negative) H 10/10/23 02:37 Urine Bilirubin Neg (Negative) 10/10/23 02:37 Prot Sulfosalicylic Acd Negative (Negative) 10/10/23 02:37 Urine Urobilinogen 1 mg/dL (Negative) H 10/10/23 02:37 Ur Leukocyte Esterase 1+ (Negative) H 10/10/23 02:37 Urine RBC 5-10 /hpf (0-2) H 10/10/23 02:37 Urine WBC 5-10 /hpf (0-5) H 10/10/23 02:37 Ur Squamous Epith Cells 0-4 /hpf (0-5) H 10/10/23 02:37 Amorphous Sediment Not Reportable 10/10/23 02:37 Urine Bacteria 1+ /hpf (NONE) H 10/10/23 02:37 Urine Mucus 2+ /hpf 10/10/23 02:37 All radiology interpretation(s) finalized by discharge Other Data - IV Zosyn in the emergency room and scheduled. -Scheduled pain medications. -I discussed the patient with the general surgeon on-call who is admitting the patient. - Discussed findings and plan with patient. Answered any questions. - All laboratory values were reviewed and interpreted personally by myself, the ER physician - All imaging was reviewed and interpreted personally by myself, the ER physician. - Evaluation and treatment of this problem were appropriate in the emergency setting Discharge Plan Discharge Patient Disposition: Admitted As Inpatient Clinical Impression: Acute calculous cholecystitis Condition: Stable Coding Level of Care Code ED Apprentice/Lineman for Marysol Castano
[2023-10-10 02:43] LABS: Basophils # 0.1 10^3/uL (0.0-0.1); Basophils % 0.5 %; Eosinophils # 0.2 10^3/uL (0.0-0.8); Eosinophils % 1.4 %; Hematocrit 44.2 % (36-47); Lymphocytes # 2.5 10^3/uL (0.8-4.8); Lymphocytes % 20.6 %; Mean Corpuscular HGB Conc 31.9 g/dL (30-55); Mean Corpuscular Volume 84.5 fl (85-98); Mean Platelet Volume 10.1 fL (7.4-10.4); Monocytes # 0.8 10^3/uL (0.2-0.9); Monocytes % 6.3 %; Neutrophils # 8.72 10^3/uL (1.8-7.7); Nucleated Red Blood Cells % 0 %; Platelet Count 404 10^3/cmm (157-399); Red Blood Count 5.23 10^6/uL (3.85-5.65); Red Cell Distribution Width 16.3 % (12.1-15.1); White Blood Count 12.29 10^3/uL (3.29-11.43)
[2023-10-10 02:53] LABS: Add Urine Microscopic? YES
[2023-10-10 02:55] LABS: Bacteria Urine 1+ /hpf; Bilirubin Urine Neg (Negative); Blood Urine 3+ (Negative); Glucose Urine UA Norm (Normal); Ketones Urine 1+ (Negative); Leukocyte Esterase Urine 1+ (Negative); Mucus Urine 2+ /hpf; Nitrate Urine Positive (Negative); Protein Urine 2+ (Negative); Squamous Epithelial Cell Urine 0-4 /hpf (0-5); Urine Appearance Cloudy (CLEAR); Urine Color Orange (Yellow); Urobilinogen Urine 1 mg/dL (Negative); pH Urine 9 (5-7)
[2023-10-10 02:56] LABS: HCG, Serum Qual Negative (Negative)
[2023-10-10 02:56] LABS: Add Urine Culture? Yes; Sulfosalicylic Acid Urine Negative (Negative)
[2023-10-10 03:45] LABS: Alanine Aminotransferase 225 U/L (0-33); Albumin Level 4.2 g/dL (3.5-5.2); Alkaline Phosphatase 472 U/L (35-105); Anion Gap 16.7 (5-19); Aspartate Amino Transferase 354 U/L (0-32); Blood Urea Nitrogen 12 mg/dL (6-20); Calcium 8.9 mg/dL (8.5-10.5); Carbon Dioxide 24 mmol/L (22-29); Chloride 104 mmol/L (98-107); Glomerular Filtration Rate 101.1 mL/min (90-130); Glucose 94 mg/dL (65-115); Lipase 25 U/L (13-60); Osmolality Calculated 292 mOsm/kg (285-295); Potassium 3.7 mmol/L (3.5-5.1); Sodium 141 mmol/L (136-145); Total Bilirubin 1.6 mg/dL (0.15-1.2); Total Protein 7.2 g/dL (6.6-8.7)
--- NOTE | 2023-10-10 04:02 | USR_ITS ---
PROCEDURE INFORMATION: Exam: US Abdomen, Limited; Right Upper Quadrant Exam date and time: 10/10/2023 5:14 AM Age: 28 years old Clinical indication: Abdominal pain; Acute; Additional info: Abd pain TECHNIQUE: Imaging protocol: Real time ultrasound of the abdomen with image documentation. Limited exam focused on the right upper quadrant. COMPARISON: US gall bladder [id number] 10/04/2023 12:23 AM FINDINGS: Liver: Mild fatty liver. Gallbladder: Contracted gallbladder with wall thickening measuring 6 mm. Reported positive sonographic Shaw sign. There are stones within the gallbladder lumen. Biliary ducts: Common bile duct measures 5 mm. Pancreas: Limited visualization of the distal pancreas due to overlying bowel gas. Right kidney: No right hydronephrosis. US/US gall bladder [id number] IMPRESSION: Cholelithiasis with wall thickening and reported positive sonographic Shaw sign. Findings may be seen with acute cholecystitis in the appropriate clinical context.
--- NOTE | 2023-10-10 05:31 | MRR_ITS ---
PROCEDURE INFORMATION: Exam: MR Abdomen Without Contrast, Biliary System Exam date and time: 10/10/2023 8:09 AM Age: 28 years old Clinical indication: Abdominal pain; Localized; Right upper quadrant (ruq); Prior surgery; Surgery date: 1-6 months; Surgery type: C section; Additional info: Cholelithiasis TECHNIQUE: Imaging protocol: MR of the abdomen without contrast. Exam focused on the biliary system and pancreatic ducts. Routine 3D-MRCP images were acquired and processed without radiologist supervision. COMPARISON: US gall bladder [id number] 10/10/2023 5:14 AM FINDINGS: Liver: No mass. Gallbladder and bile ducts: There is cholelithiasis. No CBD filling defect to suggest choledocholithiasis. No biliary dilatation. There is gallbladder wall thickening with mild pericholecystic fluid. There is a filling defect in the cystic duct, consistent with stone. Pancreas: Unremarkable. No ductal dilation. Intraperitoneal space: No fluid collection. MR/MR MRCP [id number] IMPRESSION: 1. Cholelithiasis with cystic duct stones and surrounding inflammatory changes suggestive of acute cholecystitis. 2. No CBD stones or biliary dilatation.
[2023-10-10] MEDS: piperacillin-tazobactam 3.375 GM in sodium chloride 0.9% (plus) 50 ML IV ×3 (05:49→21:03)
--- NOTE | 2023-10-10 08:00 | PC.NURSE ---
PATIENT TAKEN TO MRI AT 0800.
--- NOTE | 2023-10-10 12:38 | P.HP_ITS ---
Providers/Chief Complaint 2 Admitting Physician: Murphy Ballesteros DO Chief Complaint: abdomen pain History of Present Illness Cynthia Betancourt is a 28 year old female who recently saw in office 2 days ago for symptomatic cholelithiasis, that presented to the hospital overnight with severe sharp right upper quadrant and epigastric abdominal pain radiating to her back along with nausea and emesis. She also reports diarrhea but denies any hematemesis, hematochezia and/or melena. She does have elevated LFTs. MRCP only shows acute calculous cholecystitis with cystic duct stones. There is no, bile duct stone on MRCP. Palpation and eating make her pain worse. Nothing makes pain better. Review of Systems 2 General: Reports: 10 or more systems reviewed and unremarkable except in HPI and below Medications/Allergies Home Medications Medication Instructions Recorded Confirmed Last Taken Type ondansetron 4 mg disintegrating 4 mg PO Q6H PRN nausea and 10/04/23 10/10/23 Unknown Rx tablet vomiting #14 tabs Allergies Allergy/AdvReac Type Severity Reaction Status Date / Time red dye Allergy Unknown ALGY-Hives Verified 10/10/23 02:22 onion Allergy ALGY-Anaphy Verified 10/10/23 02:22 laxis orange Allergy ALGY-Hives Verified 10/10/23 02:22 PFSH Acute 2 PFSH: Family History Denies family history of Colon cancer Ovarian cancer Diabetes Heart disease Breast cancer Hypertension Uterine cancer Thyroid disease Stroke Social History Smoking and tobacco/nicotine status: current every day tobacco/nicotine user Alcohol intake: never Vitals/I&O/Wt Last Vital Signs Temp 99.1 F 10/10/23 02:20 Pulse 45 L 10/10/23 12:00 Resp 16 10/10/23 12:00 BP 90/55 10/10/23 12:00 Pulse Ox 94 10/10/23 12:00 O2 Del Method Room Air 10/10/23 12:00 10/09/23 10/10/23 10/10/23 22:59 06:59 14:59 Intake Total 1050 / 1050 1000 / 1000 Balance 1050 / 1050 1000 / 1000 Weight last 48 hrs Weight 185 lb Physical Exam 2 Narrative: General : Patient is well developed , no acute distress, oriented x3 Head : Normal cephalic, a-traumatic. Ears : Pinnae and external canal are normal. Hearing is normal. Eyes : PERRLA, Sclera and injection are normal. No conjunctival discharge. Nose : Mucous membranes are without erythema. Throat : buccal mucosa is normal, gums are without significant recession or hypertrophy. Lungs : Equal chest rise bilaterally, no use of accessory muscles, trachea is midline. Cor : Rate and rhythm are normal. Abdomen : Soft, mild distention, tender to palpation right upper quadrant, positive Shaw sign no g/r/m Extremities : No edema, no cyanosis or clubbing, dorsalis pedis pulses are present bilaterally, non-tender to palpation of calves. Upper extremities are normal bilaterally. Back : non-tender to palpation, no CVA tenderness. Neuro : CN II - XII intact, Upper and lower extremities have equal and full strength Data 10/10/23 02:28 10/10/23 03:20 A&P Assessment and plan (1) Acute calculous cholecystitis: (2) Elevated LFTs: Plan Low-fat diet, n.p.o. after midnight Antibiotics Pain management To OR tomorrow for laparoscopic cholecystectomy The risks and benefits of the procedure, including but not limited to, bleeding, infection, scar, numbness, pain, damage to surrounding structures, damage to common bile duct requiring additional surgery, conversion to an open procedure, were explained to the patient. He is understanding of the risks and wishes to proceed. Attestations 2 Medical Necessity Statement*: Patient will require at least 2 nights in the hospital for IV antibiotics and laparoscopic cholecystectomy for acute calculous cholecystitis Coding Level of Care Code 76350 Diagnoses Acute calculous cholecystitis K80.00 Elevated LFTs R79.89
[2023-10-10] MEDS: sodium chloride 0.9% 1,000 ML 125 ML IV ×2 (13:35→21:03)
--- NOTE | 2023-10-10 16:10 | PC.NURSE ---
Notified Dr. Ballesteros patient wanting a nicotine patch. Verbal order to give patient Nicotine Patch 14 mg transdermal daily.
[2023-10-10] MEDS: nicotine 14 mg Patch 1 PATCH TRANSDERMA (18:10)
[2023-10-10] MEDS: HYDROcodone-acetaminophen 7.5-325 mg Tablet 1 TAB PO (23:55)
[2023-10-11] VITALS (24 sets, daily range): BP systolic 111–154; BP diastolic 67–100; PULSE 42–105; RESP 16–24; TEMP 36.1–37; O2SAT 91–98; BMI 35.9
[2023-10-11] MEDS: sodium chloride 0.9% 1,000 ML 125 ML IV ×2 (05:01→17:56)
[2023-10-11] MEDS: piperacillin-tazobactam 3.375 GM in sodium chloride 0.9% (plus) 50 ML IV ×2 (05:01→20:16)
--- NOTE | 2023-10-11 07:22 | PC.NURSE ---
Dr. Ballesteros notified of patient's heart rate ranging 38-44. Patient is asymptomatic.
--- NOTE | 2023-10-11 12:28 | P.PN_ITS ---
Vitals/I&O/Wt Last Vital Signs Temp 97.7 F 10/11/23 07:37 Pulse 54 L 10/11/23 07:37 Resp 16 10/11/23 07:37 BP 112/78 10/11/23 07:37 Pulse Ox 95 10/11/23 07:37 O2 Del Method Room Air 10/11/23 07:37 10/10/23 10/11/23 10/11/23 22:59 06:59 14:59 Intake Total 1583.333 / 2583.333 1045.833 / 3629.166 50 / 50 Balance 1583.333 / 2583.333 1045.833 / 3629.166 50 / 50 Weight last 48 hrs Weight 190 lb 1.6 oz Weight 185 lb Weight 185 lb Data 10/10/23 02:28 10/10/23 03:20 Micro: Microbiology 10/10/23 02:37 Urine Culture - Preliminary Urine,Clean Catch A&P Assessment and plan (1) Acute calculous cholecystitis: (2) Elevated LFTs: Plan Laparoscopic cholecystectomy The risks and benefits of the procedure, including but not limited to, bleeding, infection, scar, numbness, pain, damage to surrounding structures, damage to common bile duct requiring additional surgery, conversion to an open procedure, were explained to the patient. He is understanding of the risks and wishes to proceed. Attestations 2 Medical Necessity Statement*: Patient requires at least 1 more night in the hospital for recovery after laparoscopic cholecystectomy Coding Level of Care Code Acute Code for Chg Fwd Diagnoses Acute calculous cholecystitis K80.00 Elevated LFTs R79.89
[2023-10-11] MEDS: sodium chloride 0.9% 1,000 ML 30 ML IV (12:45)
[2023-10-11] MEDS: lidocaine-epi 2% PF 1:200,000 20 mL SDV XX (13:46)
--- NOTE | 2023-10-11 14:12 | P.OP_ITS ---
Operative Report Date of procedure: October 11, 2023 Pre-op diagnosis: Acute calculous cholecystitis Post-op diagnosis: same Procedure done: Laparoscopic cholecystectomy Implants: none Specimens removed/disposition: Gallbladder Surgeon: Murphy Ballesteros DO Anesthesia: General and Local Estimated blood loss (mL): 5 Complications: None apparent Brief History: This is a very pleasant 28-year-old female who originally presented to my office with symptomatic cholelithiasis. She then presented to the ER with increased pain. She was found to have acute calculous cholecystitis with cystic duct stones. Laparoscopic cholecystectomy is indicated. The risk and benefits were explained and documented. Procedure: Patient was wheeled into the operative room and placed on the OR table in a supine position. Abdomen was inspected prepped and draped in usual sterile fa shion. Time-out was performed and all present were in agreement. A 15 blade scalp was used to make a stab incision in the left upper quadrant and intra- abdominal insufflation was achieved using a Veress needle. After localizing the tissue incisions were made and a 5 millimeter trocar was placed into the umbilicus as well as 2 in the right upper quadrant. A 12 millimeter trocar was placed in the epigastrium. Gallbladder was grasped and elevated. The triangle of [place]ot was carefully dissected using blunt dissection and electrocautery until the triangle of [place] clearly identified. The cystic duct was clipped proximally and double clipped distally. Prior to this I milked stones proximally into the gallbladder. When I ligated the cystic duct stones fell out and were suctioned. The duct was then ligated proximally. The cystic artery was doubly clipped and ligated. The gallbladder was then removed from the liver bed using electrocautery. The gallbladder was removed from the abdomen using an Endo-Catch bag through the epigastric incision. The liver bed was inspected and no bleeding was seen. The abdomen was irrigated and suctioned. All ports removed. Skin was washed and dried. Incisions were closed with 4-0 Monocryl in a subcuticular interrupted fashion. Skin glue was applied. Patient tolerated the procedure well.
--- NOTE | 2023-10-11 14:45 | ANE.PACU2 ---
Inpatient post-anesthesia follow up: Airway intact: Yes Vital signs: Temperature 97.9 F Pulse Rate 79 Respiratory Rate 22 Blood Pressure 135/96 Pulse Oximetry 93 Oxygen Delivery Me thod Room Air Oxygen Flow Rate Fraction of Inspir ed Oxygen Hydration adequate: Yes Nausea and vomiting: No Pain level: 1 Mental status: Baseline
[2023-10-11] MEDS: ondansetron 2 mg/ML SDV 2 mL 4 MG IVP ×2 (14:51→15:10)
[2023-10-11] MEDS: fentaNYL 50 mcg/mL INJ 2mL IVP (14:56)
[2023-10-11] MEDS: nicotine 21 mg Patch 1 PATCH TRANSDERMA (17:12)
[2023-10-11] MEDS: ketorolac 30 mg/mL INJ IVP ×2 (17:13→22:01)
[2023-10-11] MEDS: nicotine 2 mg Gum BUCCAL (17:13)
[2023-10-11] MEDS: HYDROmorphone 1 mg/mL INJ 1 mL IVP ×2 (17:54→22:01)
[2023-10-11] MEDS: HYDROcodone-acetaminophen 7.5-325 mg Tablet 1 TAB PO (20:15)
[2023-10-12 01:45] VITALS: RESP 16
[2023-10-12] MEDS: sodium chloride 0.9% 1,000 ML 125 ML IV ×2 (01:45→08:40)
[2023-10-12] MEDS: HYDROmorphone 1 mg/mL INJ 1 mL IVP (01:45)
[2023-10-12] MEDS: ketorolac 30 mg/mL INJ IVP ×2 (04:10→10:20)
[2023-10-12] MEDS: piperacillin-tazobactam 3.375 GM in sodium chloride 0.9% (plus) 50 ML IV (04:11)
[2023-10-12 04:34] VITALS: BP 100/66; PULSE 58; RESP 18; TEMP 36.9; O2SAT 94
[2023-10-12 05:37] VITALS: PULSE 53
[2023-10-12] MEDS: nicotine 21 mg Patch 1 PATCH TRANSDERMA (07:48)
[2023-10-12] MEDS: HYDROcodone-acetaminophen 7.5-325 mg Tablet 1 TAB PO (07:48)
[2023-10-12] MEDS: heparin 5,000 unit/mL INJ 1 mL 5000 UNIT SUBCUT (07:49)
[2023-10-12 08:06] VITALS: BP 122/75; PULSE 63; RESP 16; TEMP 36.4; O2SAT 96
[2023-10-12 09:11] LABS: Basophils # 0.1 10^3/uL (0.0-0.1); Basophils % 0.6 %; Eosinophils # 0.2 10^3/uL (0.0-0.8); Eosinophils % 2.9 %; Lymphocytes # 2.8 10^3/uL (0.8-4.8); Lymphocytes % 35.4 %; Mean Corpuscular HGB Conc 29.5 g/dL (30-55); Mean Corpuscular Hemoglobin 27.1 pg (27-33); Monocytes # 0.5 10^3/uL (0.2-0.9); Monocytes % 6.2 %; Neutrophils # 4.35 10^3/uL (1.8-7.7); Neutrophils % 54.6 %; Nucleated Red Blood Cells % 0 %; Platelet Count 234 10^3/cmm (157-399); Red Blood Count 4.13 10^6/uL (3.85-5.65); Red Cell Distribution Width 16.3 % (12.1-15.1); White Blood Count 7.96 10^3/uL (3.29-11.43)
[2023-10-12 09:24] VITALS: PULSE 55; RESP 15; O2SAT 96
[2023-10-12 09:37] LABS: Alanine Aminotransferase 152 U/L (0-33); Albumin Level 3.4 g/dL (3.5-5.2); Alkaline Phosphatase 271 U/L (35-105); Aspartate Amino Transferase 47 U/L (0-32); Blood Urea Nitrogen 8 mg/dL (6-20); Calcium 7.9 mg/dL (8.5-10.5); Carbon Dioxide 24 mmol/L (22-29); Chloride 107 mmol/L (98-107); Globulin 2.2 g/dL (1.3-4.6); Glomerular Filtration Rate 101.1 mL/min (90-130); Glucose 97 mg/dL (65-115); Osmolality Calculated 284 mOsm/kg (285-295); Sodium 138 mmol/L (136-145); Total Bilirubin 0.3 mg/dL (0.15-1.2); Total Protein 5.6 g/dL (6.6-8.7)
--- NOTE | 2023-10-12 10:44 | PM.DCS ---
Discharge Providers Date of Admission: 10/10/23 12:41 Date of Discharge: October 12, 2023 Attending Provider at Admission: Murphy Ballesteros DO Attending Provider at Discharge: Murphy Ballesteros DO Diagnoses at Discharge Discharge Diagnosis (1) Acute calculous cholecystitis: Status: Acute (2) Elevated LFTs: Status: Acute Reason for Visit Reason for Visit: abdomen pain Hospital Course Hospital Course This is a very pleasant 28-year-old female who came to the hospital with abdominal pain and was diagnosed with acute calculous cholecystitis. She underwent laparoscopic cholecystectomy and was discharged home in good condition the next day Physical Exam Narrative: General : Patient is well developed , no acute distress, oriented x3 Head : Normal cephalic, a-traumatic. Ears : Pinnae and external canal are normal. Hearing is normal. Eyes : PERRLA, Sclera and injection are normal. No conjunctival discharge. Nose : Mucous membranes are without erythema. Throat : buccal mucosa is normal, gums are without significant recession or hypertrophy. Lungs : Equal chest rise bilaterally, no use of accessory muscles, trachea is midline. Cor : Rate and rhythm are normal. Abdomen : Soft, ND, appropriately tender, no g/r/m Extremities : No edema, no cyanosis or clubbing, dorsalis pedis pulses are present bilaterally, non-tender to palpation of calves. Upper extremities are normal bilaterally. Back : non-tender to palpation, no CVA tenderness. Neuro : CN II - XII intact, Upper and lower extremities have equal and full strength Discharge Data Studies Completed and Pending Completed Studies During Hospitalization Category Date Time Status MR MRCP [id number] Stat MRI 10/10/23 05:31 Completed US gall bladder [id number] Stat Ultrasound 10/10/23 04:02 Completed Pending at discharge Category Date Time Status Pathology: Surgical [PTH] Routine Pth 10/11/23 14:03 Received Radiology Impressions Gallbladder Ultrasound 10/10/23 04:02 IMPRESSION: Cholelithiasis with wall thickening and reported positive sonographic Shaw sign. Findings may be seen with acute cholecystitis in the appropriate clinical context. Cholangiopancreatography MRI 10/10/23 05:31 IMPRESSION: 1. Cholelithiasis with cystic duct stones and surrounding inflammatory changes suggestive of acute cholecystitis. 2. No CBD stones or biliary dilatation. Laboratory Results WBC 7.96 10^3/uL (3.29-11.43) 10/12/23 09:00 RBC 4.13 10^6/uL (3.85-5.65) 10/12/23 09:00 Hgb 11.20 g/dL (11.27-16.99) L 10/12/23 09:00 Hct 38.0 % (36-47) 10/12/23 09:00 MCV 92.0 fl (85-98) 10/12/23 09:00 MCH 27.1 pg (27-33) 10/12/23 09:00 MCHC 29.5 g/dL (30-55) L 10/12/23 09:00 RDW 16.3 % (12.1-15.1) H 10/12/23 09:00 Plt Count 234 10^3/cmm (157-399) 10/12/23 09:00 MPV 10.0 fL (7.4-10.4) 10/12/23 09:00 Neut % (Auto) 54.6 % 10/12/23 09:00 Lymph % (Auto) 35.4 % 10/12/23 09:00 [place] % (Auto) 6.2 % 10/12/23 09:00 Eos % (Auto) 2.9 % 10/12/23 09:00 Baso % (Auto) 0.6 % 10/12/23 09:00 Neut # (Auto) 4.35 10^3/uL (1.8-7.7) 10/12/23 09:00 Lymph # (Auto) 2.8 10^3/uL (0.8-4.8) 10/12/23 09:00 [place] # (Auto) 0.5 10^3/uL (0.2-0.9) 10/12/23 09:00 Eos # (Auto) 0.2 10^3/uL (0.0-0.8) 10/12/23 09:00 Baso # (Auto) 0.1 10^3/uL (0.0-0.1) 10/12/23 09:00 Nucleated RBC % (auto) 0 % 10/12/23 09:00 Nucleated RBCs # 0.0 /100WBC 10/12/23 09:00 Sodium 138 mmol/L (136-145) 10/12/23 09:00 Potassium 4.0 mmol/L (3.5-5.1) 10/12/23 09:00 Chloride 107 mmol/L (98-107) 10/12/23 09:00 Carbon Dioxide 24 mmol/L (22-29) 10/12/23 09:00 Anion Gap 11.0 (5-19) 10/12/23 09:00 BUN 8 mg/dL (6-20) 10/12/23 09:00 Creatinine 0.7 mg/dL (0.5-0.9) 10/12/23 09:00 GFR Calculation 101.1 mL/min (90-130) 10/12/23 09:00 Glucose 97 mg/dL (65-115) 10/12/23 09:00 Calculated Osmolality 284 mOsm/kg (285-295) L 10/12/23 09:00 Calcium 7.9 mg/dL (8.5-10.5) L 10/12/23 09:00 Total Bilirubin 0.3 mg/dL (0.15-1.2) 10/12/23 09:00 AST 47 U/L (0-32) H 10/12/23 09:00 ALT 152 U/L (0-33) H 10/12/23 09:00 Alkaline Phosphatase 271 U/L (35-105) H 10/12/23 09:00 Total Protein 5.6 g/dL (6.6-8.7) L 10/12/23 09:00 Albumin 3.4 g/dL (3.5-5.2) L 10/12/23 09:00 Globulin 2.2 g/dL (1.3-4.6) 10/12/23 09:00 Lipase 25 U/L (13-60) 10/10/23 03:20 HCG, Qual Negative (Negative) 10/10/23 02:28 Urine Color [place] (Yellow) A 10/10/23 02:37 Urine Appearance Cloudy (CLEAR) A 10/10/23 02:37 Urine pH 9 (5-7) H 10/10/23 02:37 Ur Specific [place] 1.010 (1.005-1.030) 10/10/23 02:37 Urine Protein 2+ (Negative) H 10/10/23 02:37 Urine Glucose (UA) Norm (Normal) 10/10/23 02:37 Urine Ketones 1+ (Negative) H 10/10/23 02:37 Urine Blood 3+ (Negative) H 10/10/23 02:37 Urine Nitrate Positive (Negative) H 10/10/23 02:37 Urine Bilirubin Neg (Negative) 10/10/23 02:37 Prot Sulfosalicylic Acd Negative (Negative) 10/10/23 02:37 Urine Urobilinogen 1 mg/dL (Negative) H 10/10/23 02:37 Ur Leukocyte Esterase 1+ (Negative) H 10/10/23 02:37 Urine RBC 5-10 /hpf (0-2) H 10/10/23 02:37 Urine WBC 5-10 /hpf (0-5) H 10/10/23 02:37 Ur Squamous Epith Cells 0-4 /hpf (0-5) H 10/10/23 02:37 Amorphous Sediment Not Reportable 10/10/23 02:37 Urine Bacteria 1+ /hpf (NONE) H 10/10/23 02:37 Urine Mucus 2+ /hpf 10/10/23 02:37 Procedures Performed Laparoscopic cholecystectomy Vitals Last Vital Signs Temp 97.5 F L 10/12/23 08:06 Pulse 55 L 10/12/23 09:24 Resp 15 10/12/23 09:24 BP 122/75 10/12/23 08:06 Pulse Ox 96 10/12/23 09:24 O2 Del Method Room Air 10/12/23 09:24 Discharge Plan Discharge Patient Disposition: Home Condition: Stable Prescriptions: New hydrocodone-acetaminophen 7.5-325 mg tablet 1 tab PO Q6H PRN (Reason: pain) Qty: 20 0RF Colace 100 mg capsule 100 mg PO BID Qty: 14 0RF Continued ondansetron 4 mg tablet,disintegrating 4 mg PO Q6H PRN (Reason: nausea and vomiting) Qty: 14 0RF Discharge Orders: Discharge Order (Routine); Ordered 10/12/23 Ordered By: Murphy Ballesteros Referrals: Murphy Ballesteros DO [Physician] - 2 weeks Discharge Diet: Advance as tolerated Discharge Activity: Resume usual activity Patient Instructions: Opioid Safety, Post Anesthesia Care Activity Restrictions/Additional Instructions: Do not soak incisions underwater for 2 weeks. Shower daily. Discharge Attestations Time Spent in Discharge Care*: less than 30 min Quality Metrics Clinical Quality Measures [ No reported AMI, CVA or VTE this stay] Coding Level of Care Code Acute Code for Chg Fwd Diagnoses Acute calculous cholecystitis K80.00 Elevated LFTs R79.89
--- NOTE | 2023-10-12 11:47 | PC.NURSE ---
Discharge instructions provided to pt and her mother. No questions or concerns at this time. Pt ambulated self to private vehicle per her wishes with mother at side. All belongings with pt.
[2023-10-12 11:48] VITALS: PULSE 55; RESP 15; O2SAT 96
== END 2023-10-12 11:49 | disposition home or self-care (01) ==
LOC: ER 09:44 → MEDSURG 14:16
PROVIDERS: Admitting Provider Surgery; Emergency Provider Emergency Medicine; Visit Provider Surgery
PROC: 0FT44ZZ Resection of Gallbladder, Percutaneous Endoscopic Approach (ICD-10-PCS; CPT 47562; principal; 2023-10-11 12:55)
DX: K80.10 Calculus of gallbladder with chronic cholecystitis without obstruction (principal); R79.89 Other specified abnormal findings of blood chemistry; F17.200 Nicotine dependence, unspecified, uncomplicated
CPT/HCPCS: 47562; 36415; 74181; 76705; 80053; 81001; 83690; 84703; 85025; 87086; 88304; 96365; 96372; 96375; 99285; G0378; J1170; J1644; J1885; J2250; J2270; J2405; J2543; J2704; J3010; J3490; J7030

== ENCOUNTER 2024-11-04 15:57 | Emergency (ER) | payer MEDICAID, SELFPAY ==
[2024-11-04] VITALS (8 sets, daily range): BP systolic 117–149; BP diastolic 69–108; PULSE 66–95; RESP 16; TEMP 36.5; O2SAT 96–100; BMI 37.8
--- NOTE | 2024-11-04 16:15 | W.ED.ABDPA2 ---
HPI - Abdominal Pain General: Chief Complaint: Abdominal Pain Stated Complaint: abd and back pain Time Seen by Provider: 11/04/24 16:04 History of Present Illness: 29-year-old female who presents emergency room with abdominal pain. She been having lower abdominal pain is more on the right that radiates to her back bilaterally.'s been going on for days. She has had brownish clots in her urine she says. No dysuria. No known fevers. She said some nausea but no vomiting. Related Data Date of Last Menstrual Period: 10/12/24 Previous Rx's ?Medication ?Instructions ?Recorded ondansetron 4 mg disintegrating 4 mg PO Q6H PRN nausea and 10/04/23 tablet vomiting #14 tabs docusate sodium 100 mg capsule 100 mg PO BID #14 caps 10/12/23 (Colace) hydrocodone 7.5 mg-acetaminophen 1 tab PO Q6H PRN pain #20 tabs 10/12/23 325 mg tablet cefdinir 300 mg capsule 300 mg PO BID 7 days #14 caps 11/04/24 diclofenac sodium 50 mg 50 mg PO BID PRN pain #14 tabs 11/04/24 tablet,delayed release Allergies Allergy/AdvReac Type Severity Reaction Status Date / Time red dye Allergy Unknown ALGY-Hives Verified 11/04/24 16:03 onion Allergy ALGY-Anaphy Verified 11/04/24 16:03 laxis orange Allergy ALGY-Hives Verified 11/04/24 16:03 Review of Systems Narrative: Constitutional symptoms: Negative except as documented in HPI. Skin symptoms: Negative except as documented in HPI. Eye symptoms: Negative except as documented in HPI. ENMT symptoms: Negative except as documented in HPI. Respiratory symptoms: Negative except as documented in HPI. Cardiovascular symptoms: Negative except as documented in HPI. Gastrointestinal symptoms: Negative except as documented in HPI. Genitourinary symptoms: Negative except as documented in HPI. Musculoskeletal symptoms: Negative except as documented in HPI. Neurologic symptoms: Negative except as documented in HPI. Psychiatric symptoms: Negative except as documented in HPI. Endocrine symptoms: Negative except as documented in HPI. PFSH ED PFSH: Family History Denies family history of Colon cancer Ovarian cancer Diabetes Heart disease Breast cancer Hypertension Uterine cancer Thyroid disease Stroke Social History Smoking and tobacco/nicotine status: current every day tobacco/nicotine user Alcohol intake: never Female Reproductive History: Date of last menstrual period: 10/12/24 Physical Exam Narrative: EXAM NARRATIVE: General: Alert, no acute distress. Skin: Warm, dry. Head: Normocephalic, atraumatic. Neck: Supple, trachea midline. Eye: Extraocular movements are intact. Ears, nose, mouth and throat: mucosa moist. Cardiovascular: Regular, Normal peripheral perfusion. Respiratory: Lungs are clear to auscultation, respirations are non-labored, breath sounds are equal, Symmetrical chest wall expansion. Gastrointestinal: Soft, Nontender, Non distended Musculoskeletal: Normal ROM, no deformity. Neurological: Alert and oriented, No focal neurological deficit observed. Psychiatric: Cooperative, appropriate mood & affect. Course Vital Signs: Vital signs: Vital Signs Temperature 97.7 F 11/04/24 16:00 Pulse Rate 76 11/04/24 18:30 Respiratory Rate 16 11/04/24 16:00 Blood Pressure 149/108 11/04/24 18:30 Pulse Oximetry 99 11/04/24 18:30 Oxygen Delivery Me thod Room Air 11/04/24 18:30 MDM - Abdominal Pain Medical Decision Making Medical decision making: Differential diagnosis including but not limited to and based on the above HPI, review of systems and physical exam: Ureterolithiasis. Urinary tract infection. Appendicitis. Cholecystis. Musculoskeletal / back pain. Pyelonephritis Orders placed to evaluate differential diagnosis based on the above differential, HPI and physical exam Lab Review: Laboratory results were reviewed and interpreted by myself the emergency room physician. No leukocytosis. No anemia. No renal failure. Urinalysis positive for hematuria and leukocytosis with 4+ bacteria. CT of the abdomen pelvis with a renal protocol: No acute process. This was reviewed and interpreted by myself the emergency room physician. I also reviewed the radiology report. I reviewed the patient's medical record. Reexamination: Patient remained stable. No increased work of breathing. No altered mental status. No focal motor deficits. Assessment and plan: Urinary tract infection ?IV Rocephin, IV Zofran and IV Toradol in the emergency room - Discharged home - Discussed plan with patient. Answered any questions. - Evaluation and treatment of this problem were appropriate in the emergency setting. Lab Data 11/04/24 16:35 11/04/24 16:35 Labs/Radiology: Radiology Impressions Abdomen/Pelvis CT 11/04/24 17:15 IMPRESSION: 1. No hydronephrosis or obstructing renal stones. 2. Hepatomegaly measuring 18.9 cm. 3. Mild submucosal edema throughout the large bowel, including a segmental portion of the sigmoid colon. Query inflammatory bowel disease. 4. Post-cholecystectomy status. No biliary ductal dilation. Laboratory Results WBC 8.47 10^3/uL (3.29-11.43) 11/04/24 16:35 RBC 4.58 10^6/uL (3.85-5.65) 11/04/24 16:35 Hgb 13.90 g/dL (11.27-16.99) 11/04/24 16:35 Hct 42.1 % (36-47) 11/04/24 16:35 MCV 91.9 fl (85-98) 11/04/24 16:35 MCH 30.3 pg (27-33) 11/04/24 16: MCHC 33.0 g/dL (30-55) 11/04/24 16:35 RDW 13.3 % (12.1-15.1) 11/04/24 16:35 Plt Count 266 10^3/cmm (157-399) 11/04/24 16:35 MPV 10.0 fL (7.4-10.4) 11/04/24 16:35 Neut % (Auto) 55.4 % 11/04/24 16:35 Lymph % (Auto) 36.8 % 11/04/24 16:35 [place] % (Auto) 5.7 % 11/04/24 16:35 Eos % (Auto) 1.2 % 11/04/24 16:35 Baso % (Auto) 0.7 % 11/04/24 16:35 Neut # (Auto) 4.69 10^3/uL (1.8-7.7) 11/04/24 16:35 Lymph # (Auto) 3.1 10^3/uL (0.8-4.8) 11/04/24 16:35 [place] # (Auto) 0.5 10^3/uL (0.2-0.9) 11/04/24 16:35 Eos # (Auto) 0.1 10^3/uL (0.0-0.8) 11/04/24 16:35 Baso # (Auto) 0.1 10^3/uL (0.0-0.1) 11/04/24 16:35 Nucleated RBC % (auto) 0 % 11/04/24 16:35 Nucleated RBCs # 0.0 /100WBC 11/04/24 16:35 Sodium 142 mmol/L (136-145) 11/04/24 16:35 Potassium 3.6 mmol/L (3.5-5.1) 11/04/24 16:35 Chloride 107 mmol/L (98-107) 11/04/24 16:35 Carbon Dioxide 22 mmol/L (22-29) 11/04/24 16:35 Anion Gap 16.6 (5-19) 11/04/24 16:35 BUN 8 mg/dL (6-20) 11/04/24 16:35 Creatinine 0.5 mg/dL (0.5-0.9) 11/04/24 16:35 GFR Calculation 148.0 mL/min (90-130) H 11/04/24 16:35 Glucose 84 mg/dL (65-115) 11/04/24 16:35 Calculated Osmolality 292 mOsm/kg (285-295) 11/04/24 16:35 Calcium 8.6 mg/dL (8.5-10.5) 11/04/24 16:35 Total Bilirubin 0.4 mg/dL (0.15-1.2) 11/04/24 16:35 AST 31 U/L (0-32) 11/04/24 16:35 ALT 34 U/L (0-33) H 11/04/24 16:35 Alkaline Phosphatase 90 U/L (35-105) 11/04/24 16:35 Total Protein 6.8 g/dL (6.6-8.7) 11/04/24 16:35 Albumin 4.3 g/dL (3.5-5.2) 11/04/24 16:35 Globulin 2.5 g/dL (1.3-4.6) 11/04/24 16:35 HCG, Qual Negative (Negative) 11/04/24 16:13 Urine Color Yellow (Yellow) 11/04/24 16:13 Urine Appearance Cloudy (CLEAR) A 11/04/24 16:13 Urine pH 6.0 (5-7) 11/04/24 16:13 Ur Specific [place] 1.022 (1.005-1.030) 11/04/24 16:13 Urine Protein Trace (Negative) A 11/04/24 16:13 Urine Glucose (UA) Negative (Normal) 11/04/24 16:13 Urine Ketones Negative (Negative) 11/04/24 16:13 Urine Blood 2+ (Negative) A 11/04/24 16:13 Urine Nitrate Negative (Negative) 11/04/24 16:13 Urine Bilirubin Negative (Negative) 11/04/24 16:13 Urine Urobilinogen 1.0 mg/dL (Negative) 11/04/24 16:13 Ur Leukocyte Esterase Negative (Negative) 11/04/24 16:13 Urine RBC 6-10 /hpf (0-2) 11/04/24 16:13 Urine WBC 11-20 /hpf (0-5) H 11/04/24 16:13 Ur Squamous Epith Cells 21-50 /hpf (0-5) H 11/04/24 16:13 Amorphous Sediment Not Reportable 11/04/24 16:13 Urine Bacteria 4+ /hpf (NONE) H 11/04/24 16:13 Hyaline Casts 6.20 /lpf 11/04/24 16:13 All radiology interpretation(s) finalized by discharge Discharge Plan Discharge Patient Disposition: Home Clinical Impression: Urinary tract infection Condition: Stable Prescriptions: New diclofenac sodium 50 mg tablet,delayed release (DR/EC) 50 mg PO BID PRN (Reason: pain) Qty: 14 0RF cefdinir 300 mg capsule 300 mg PO BID 7 Days Qty: 14 0RF No Action ondansetron 4 mg tablet,disintegrating 4 mg PO Q6H PRN (Reason: nausea and vomiting) Qty: 14 0RF hydrocodone-acetaminophen 7.5-325 mg tablet 1 tab PO Q6H PRN (Reason: pain) Qty: 20 0RF Colace 100 mg capsule 100 mg PO BID Qty: 14 0RF Discharge Orders: Discharge ED (Routine); Ordered 11/04/24 Ordered By: Berkley Ferris Discharge Diet: Usual diet Discharge Activity: Increase activity as tolerated Patient Instructions: Urinary Tract Infection in Women (ED), Opioid Safety, Pain Management Activity Restrictions/Additional Instructions: Thank you for choosing [facility] for your healthcare needs today. Please realize this is an emergency room and that we are providing you with a medical screening exam and this may not be complete and all inclusive of all the testing and or work up that you may need to determine your ailment or severity of your illness. You have been screened and evaluated and felt safe for discharge. Health conditions do change or evolve sometimes and as such it is important that you follow up with your Primary Doctor to be re checked, 3-5 days is a general good time frame for follow up. You are always welcome to return to the ED for re assessment if your symptoms are worsening or you have new concerns Print Language: [place] Citizen Coding Level of Care Code ED Saute Chef for Marysol Castano
[2024-11-04 16:39] LABS: Bilirubin Urine Negative (Negative); Blood Urine 2+ (Negative); Glucose Urine UA Negative (Normal); Ketones Urine Negative (Negative); Leukocyte Esterase Urine Negative (Negative); Nitrate Urine Negative (Negative); Protein Urine Trace (Negative); Specific Gravity, Urine 1.022 (1.005-1.030); Urine Appearance Cloudy (CLEAR); Urine Color Yellow (Yellow)
[2024-11-04 16:44] LABS: Bacteria Urine 4+ /hpf; Squamous Epithelial Cell Urine 21-50 /hpf (0-5)
[2024-11-04 17:00] LABS: UA Slide Review UA Slide Review Perf
[2024-11-04 17:03] LABS: Basophils # 0.1 10^3/uL (0.0-0.1); Basophils % 0.7 %; Eosinophils # 0.1 10^3/uL (0.0-0.8); Eosinophils % 1.2 %; Hematocrit 42.1 % (36-47); Lymphocytes # 3.1 10^3/uL (0.8-4.8); Lymphocytes % 36.8 %; Mean Corpuscular Hemoglobin 30.3 pg (27-33); Mean Corpuscular Volume 91.9 fl (85-98); Monocytes # 0.5 10^3/uL (0.2-0.9); Monocytes % 5.7 %; Neutrophils # 4.69 10^3/uL (1.8-7.7); Neutrophils % 55.4 %; Nucleated Red Blood Cells % 0 %; Platelet Count 266 10^3/cmm (157-399); Red Blood Count 4.58 10^6/uL (3.85-5.65); Red Cell Distribution Width 13.3 % (12.1-15.1); White Blood Count 8.47 10^3/uL (3.29-11.43)
[2024-11-04 17:13] LABS: HCG Qualitative Urine. Negative (Negative)
--- NOTE | 2024-11-04 17:15 | CTR_ITS ---
PROCEDURE INFORMATION: Exam: CT Abdomen And Pelvis Without Contrast Exam date and time: 11/04/2024 5:21 PM Age: 29 years old Clinical indication: Abdominal pain; Flank; Left; Prior surgery; Surgery date: 6+ months; Surgery type: Gb; Additional info: Flank pain TECHNIQUE: Imaging protocol: Computed tomography of the abdomen and pelvis without contrast. Radiation optimization: All CT scans at this facility use at least one of these dose optimization techniques: automated exposure control; mA and/or kV adjustment per patient size (includes targeted exams where dose is matched to clinical indication); or iterative reconstruction. COMPARISON: MR MRCP [id number] 10/10/2023 8:09 AM RADIATION DOSE METRICS: Total DLP (mGy-cm): 919.93 FINDINGS: Liver: Enlarged liver measuring 18.9 centimeters Gallbladder and biliary ducts: There has been a cholecystectomy. Pancreas: Normal. No ductal dilation. Spleen: Normal. No splenomegaly. Adrenal glands: Normal. No mass. Kidneys and ureters: Normal. No hydronephrosis. Stomach and bowel: There is mild submucosal edema throughout the large bowel, segmental portion of the sigmoid colon (series 4, image 164) has known normal large bowel features. Query inflammatory bowel disease. Normal appendix. Appendix: No appendicitis. Intraperitoneal space: Unremarkable. No free air. No significant fluid collection. Vasculature: Unremarkable. No abdominal aortic aneurysm. Lymph nodes: Unremarkable. No enlarged lymph nodes. Urinary bladder: Unremarkable as visualized. Reproductive: Unremarkable as visualized. Bones/joints: Unremarkable. No acute fracture. Soft tissues: Unremarkable. CT/CT kidney stone [id number] IMPRESSION: 1. No hydronephrosis or obstructing renal stones. 2. Hepatomegaly measuring 18.9 cm. 3. Mild submucosal edema throughout the large bowel, including a segmental portion of the sigmoid colon. Query inflammatory bowel disease. 4. Post-cholecystectomy status. No biliary ductal dilation.
[2024-11-04 17:24] LABS: Alanine Aminotransferase 34 U/L (0-33); Albumin Level 4.3 g/dL (3.5-5.2); Alkaline Phosphatase 90 U/L (35-105); Anion Gap 16.6 (5-19); Aspartate Amino Transferase 31 U/L (0-32); Blood Urea Nitrogen 8 mg/dL (6-20); Calcium 8.6 mg/dL (8.5-10.5); Carbon Dioxide 22 mmol/L (22-29); Chloride 107 mmol/L (98-107); Creatinine Clr Calc Pharmacy 173.3361; Globulin 2.5 g/dL (1.3-4.6); Glucose 84 mg/dL (65-115); Osmolality Calculated 292 mOsm/kg (285-295); Potassium 3.6 mmol/L (3.5-5.1); Sodium 142 mmol/L (136-145); Total Bilirubin 0.4 mg/dL (0.15-1.2); Total Protein 6.8 g/dL (6.6-8.7)
[2024-11-04] MEDS: cefTRIAXone 1,000 mg SDV 1000 MG IVP (17:37)
[2024-11-04] MEDS: ondansetron 2 mg/ML SDV 2 mL 4 MG IVP (19:11)
[2024-11-04] MEDS: ketorolac 30 mg/mL INJ IVP (19:12)
== END 2024-11-04 19:54 | disposition home or self-care (01) ==
PROVIDERS: Emergency Provider Emergency Medicine
DX: N39.0 Urinary tract infection, site not specified (principal); Z72.0 Tobacco use
CPT/HCPCS: 36415; 74176; 80053; 81001; 81025; 85025; 87040; 96374; 96375; 99285; J0696; J1885; J2405